=== PATIENT | male | born 1950 | race Caucasian/White ===

== ENCOUNTER 2023-10-30 16:51 | Emergency (ER) | payer OTHER ==
[~2023-10-30] VITALS: Ht 182.9 cm; Wt 100.0 kg
[2023-10-30 16:54] VITALS: O2SAT 97
[2023-10-30 18:05] LABS: BASOPHILS % 0.5 % (0.0-2.0); DIFFERENTIAL COMMENT 0; HEMATOCRIT. 43.1 % (42.0-52.0); HEMOGLOBIN. 14.8 g/dL (14.0-18.0); LYMPHOCYTES % 9.2 % (20.0-50.0); MEAN CORPUSCULAR HEMOGLOBIN 32.5 pg (28.0-32.0); MEAN CORPUSCULAR HGB CONC 34.4 g/dL (31.0-37.0); MEAN CORPUSCULAR VOLUME 94.4 fL (80.0-94.0); MEAN PLATELET VOLUME 8.1 fl (7.4-10.4); MONOCYTES % 13.1 % (2.0-8.0); NEUTROPHILS % 77.2 % (40.0-76.0); PLATELET 188 x1000/uL (130-400); RED BLOOD CELL COUNT 4.56 mill/uL (4.7-6.1); RED CELL DISTRIBUTION WIDTH 13.4 % (11.6-14.6); WHITE BLOOD COUNT 12.9 x1000/uL (4.5-11.0)
[2023-10-30 18:09] LABS: CHLORIDE 99 mEq/L (98-107); POTASSIUM 3.8 mEq/L (3.5-5.1); SODIUM 126 mEq/L (136-145)
[2023-10-30 18:10] LABS: CARBON DIOXIDE 17 mEq/L (21-32)
[2023-10-30 18:11] LABS: CALCIUM 8.4 mg/dL (8.7-10.4)
[2023-10-30 18:15] LABS: CREATININE 1.5 mg/dL (0.6-1.3); GLUCOSE 165 mg/dL (70-105)
[2023-10-30 18:16] LABS: UREA NITROGEN BLOOD 30 mg/dL (9-23)
[2023-10-30 18:17] LABS: ALANINE AMINOTRANSFERASE 48 IU/L (10-49); ALBUMIN 3.7 g/dL (3.2-4.8); ASPARTATE AMINOTRANSFERASE 40 IU/L (<34)
[2023-10-30 18:18] LABS: BILIRUBIN TOTAL 1.2 mg/dL (0.1-1.0); PROTEIN TOTAL 6.4 g/dL (6.0-8.3)
[2023-10-30 18:25] LABS: INR 1.1; PROTHROMBIN TIME 12.2 sec (9.6-11.0)
[2023-10-30] MEDS: FLUORESCEIN SODIUM 1MG/STRIP RIGHTEYE ONE (19:10)
[2023-10-30] MEDS: TETRACAINE 0.5% OPHTH DROPS 4ML RIGHTEYE ONE (19:15)
[2023-10-30] MEDS: SODIUM CHLORIDE 0.9% 1,000 ML IV ONE (20:00)
[2023-10-30] MEDS ORDERED: ACYCLOVIR IV ONE (20:30)
[2023-10-30] MEDS ORDERED: WATER IV ONE (20:30)
[2023-10-30] MEDS ORDERED: DEXT 5% IV ONE (20:30)
[2023-10-30] MEDS: VANCOMYCIN 1G PREMIX 200 ML IV ONE (20:51)
[2023-10-30] MEDS: VALACYCLOVIR HCL 500MG TABLET PO NR (21:00)
[2023-10-30 21:08] LABS: LACTIC ACID 2.1 mmol/L (0.4-2.0)
[2023-10-30] MEDS: PIPERACILLIN/TAZO 3.375G/50ML 50 ML IV ONE (22:30)
[2023-10-31 00:54] VITALS: BP 121/66; PULSE 96; RESP 18; TEMP 98.4
== END 2023-10-31 02:23 | disposition short-term general hospital (02) ==
LOC: ER 16:51 → CANBEDREQ 10-31 21:09
DX: H05.20 Unspecified exophthalmos (principal); E11.9 Type 2 diabetes mellitus without complications; I10 Essential (primary) hypertension
CPT/HCPCS: 99285; 96365; 70450; 96367; 96361; 80053; 83605 ×2; 83690; 85025; 85610; 87040; 36415; 84145; 82962; J2543; J3370; J7030; J0133; J7060